=== PATIENT | male | born 1950 | race Caucasian/White ===

== ENCOUNTER 2017-09-28 00:07 | Emergency (ER) | payer MEDICARE, BC ==
--- NOTE | 2017-09-28 00:42 | EDM.PDOC ---
ED HPI GENERAL MEDICAL PROBLEM - General Chief Complaint: Genitourinary Problem Stated Complaint: PAIN LOWER ABDOMEN AREA Time Seen by Provider: 09/28/17 00:30 Source of Information: Reports: Patient History Limitations: Reports: No Limitations - History of Present Illness INITIAL COMMENTS - FREE TEXT/NARRATIVE: This is a 67-year-old male. He had prostate surgery back on the . Apparently last 2 weeks he had a upper respiratory infection was coughing quite a bit. He is noted over the last several days some swelling in his left testicle and marked tenderness and he thinks he might have a hernia. Today he's been running a low-grade fever and chilling but no documented fever. He's had bilateral hernia surgeries in the past with mesh. The left testicle is swollen and very tender he denies any difficulty in urination. Apparently after the prostate surgery had a lot of oozing of bloody urine but that pretty much has eased up. Left Groin Pain Score (Numeric/FACES): 8 - Related Data Allergies Allergy/AdvReac Type Severity Reaction Status Date / Time amoxicillin [Amoxicillin] Allergy Muscle Verified 09/28/17 00:27 Aches Past Medical History HEENT History: Reports: Impaired Vision Cardiovascular History: Reports: Hypertension, Other (See Below) Other Cardiovascular History: partial blockage Respiratory History: Reports: Sleep Apnea Gastrointestinal History: Reports: GERD, Hiatal Hernia - Past Surgical History Male Surgical History: Reports: Prostatectomy Neurological Surgical History: Reports: Lumbar Spine Musculoskeletal Surgical History: Reports: Shoulder Surgery Social & Family History - Family History Cardiac: Reports: Hypertension Neurological: Reports: Other (See Below) Other Neurological Family History: ALS - Tobacco Use Smoking Status *Q: Never Smoker Second Hand Smoke Exposure: No - Caffeine Use Caffeine Use: Reports: None ED ROS GENERAL - Review of Systems Review Of Systems: See Below Constitutional: Reports: Fever, Chills HEENT: Reports: No Symptoms Respiratory: Reports: No Symptoms Cardiovascular: Reports: No Symptoms Endocrine: Reports: No Symptoms GI/Abdominal: Reports: No Symptoms : Reports: Pain, Other (Left testicular enlargement) Musculoskeletal: Reports: No Symptoms Skin: Reports: No Symptoms Neurological: Reports: No Symptoms Psychiatric: Reports: No Symptoms Hematologic/Lymphatic: Reports: No Symptoms Immunologic: Reports: No Symptoms ED EXAM, RENAL/ - Physical Exam Exam: See Below Exam Limited By: No Limitations General Appearance: Alert, WD/WN, No Apparent Distress Eye Exam: Bilateral Eye: Normal Inspection Ears: Normal External Exam Nose: Normal Inspection Throat/Mouth: Normal Inspection, Normal Lips, Normal Voice Head: Normocephalic Neck: Supple Respiratory/Chest: No Respiratory Distress (Male) Exam: Testicular Mass, Testicular Tenderness (L), Other (There is no inguinal hernia noted, the left testicle is about 3 times larger than the right one and very tender on palpation, the testicular cord on the left is also very tender) Back Exam: Full Range of Motion Extremities: Normal Inspection, Normal Range of Motion Neurological: Alert, Oriented Psychiatric: Normal Affect, Normal Mood Skin Exam: Warm, Dry Course - Vital Signs Last Recorded V/S: Last Vital Signs Temp 99.5 F 09/28/17 00:22 Pulse 67 09/28/17 00:22 Resp 18 09/28/17 00:22 BP 143/88 H 09/28/17 00:22 Pulse Ox 96 09/28/17 00:22 - Orders/Labs/Meds Orders: Active Orders 24 hr Category Date Time Status Testicular US [Scrotum and Contents] [US] Stat Exams 09/28/17 00:38 Ordered CBC WITH AUTO DIFF [HEME] Stat Lab 09/28/17 00:39 Ordered COMPREHENSIVE METABOLIC PN,CMP [CHEM] Stat Lab 09/28/17 00:39 Ordered - Re-Assessments/Exams Free Text/Narrative Re-Assessment/Exam: 09/28/17 00:52 I spoke to the patient regarding his lab results and his PSA. I also spoke to Dr. Haider regarding the patient's situation being in [place] last week his elevated PSA and his worsening gross hematuria. Dr. Haider is willing to put him in the hospital for observation and bladder irrigation as needed. The patient understands that his family physician Dr. Cristiana Ulrich needs to make arrangements for him to go to [facility] since the [place] urologist is unable to help him at this time. Departure - Departure Time of Disposition: 00:53 Disposition: Refer to Observation Condition: Fair Clinical Impression: Prostate cancer, Gross hematuria, Anemia due to chronic blood loss - Discharge Information Referrals: Nuno Cortes MD [Primary Care Provider] - Forms: ED Department Discharge Additional Instructions: I spoke to Dr. Haider and he will place the patient in observation for further evaluation and treatment ED Communication - ED Communication Date/Time Date: 09/28/17 Time Called: 00:55 - Discussed Case With (1) Person/s Notified (1): Kisha Haider (He will place the patient in observation) - My Orders Last 24 Hours: My Active Orders 09/28/17 00:38 Testicular US [Scrotum and Contents] [US] Stat 09/28/17 00:39 CBC WITH AUTO DIFF [HEME] Stat COMPREHENSIVE METABOLIC PN,CMP [CHEM] Stat - Assessment/Plan Last 24 Hours: My Active Orders 09/28/17 00:38 Testicular US [Scrotum and Contents] [US] Stat 09/28/17 00:39 CBC WITH AUTO DIFF [HEME] Stat COMPREHENSIVE METABOLIC PN,CMP [CHEM] Stat
--- NOTE | 2017-09-28 02:13 | EDM.PDOC ---
ED HPI GENERAL MEDICAL PROBLEM - General Chief Complaint: Genitourinary Problem Stated Complaint: PAIN LOWER ABDOMEN AREA Time Seen by Provider: 09/28/17 00:30 Source of Information: Reports: Patient, Other (Please note there is going to be to charts because I accidentally somehow signed the first chart so I'm adding more information to this chart but the 2 charts combined should be the total chart.) History Limitations: Reports: No Limitations - History of Present Illness INITIAL COMMENTS - FREE TEXT/NARRATIVE: This is a 67-year-old male. He had prostate surgery back on the . Apparently last 2 weeks he had a upper respiratory infection was coughing quite a bit. He is noted over the last several days some swelling in his left testicle and marked tenderness and he thinks he might have a hernia. Today he's been running a low-grade fever and chilling but no documented fever. He's had bilateral hernia surgeries in the past with mesh. The left testicle is swollen and very tender he denies any difficulty in urination. Apparently after the prostate surgery had a lot of oozing of bloody urine but that pretty much has eased up. Left Groin Pain Score (Numeric/FACES): 8 - Related Data Allergies Allergy/AdvReac Type Severity Reaction Status Date / Time amoxicillin [Amoxicillin] Allergy Muscle Verified 09/28/17 00:27 Aches Home Meds: Home Meds Ciprofloxacin HCl [Cipro] 500 mg PO BID #20 tablet 09/28/17 [Rx] Hydrocodone/Acetaminophen [Hydrocodon-Acetaminophen 5-325] 1 each PO Q6HR PRN # 20 tablet 09/28/17 [Rx] Past Medical History HEENT History: Reports: Impaired Vision Cardiovascular History: Reports: Hypertension, Other (See Below) Other Cardiovascular History: partial blockage Respiratory History: Reports: Sleep Apnea Gastrointestinal History: Reports: GERD, Hiatal Hernia - Past Surgical History Male Surgical History: Reports: Prostatectomy Neurological Surgical History: Reports: Lumbar Spine Musculoskeletal Surgical History: Reports: Shoulder Surgery Social & Family History - Family History Cardiac: Reports: Hypertension Neurological: Reports: Other (See Below) Other Neurological Family History: ALS - Tobacco Use Smoking Status *Q: Never Smoker Second Hand Smoke Exposure: No - Caffeine Use Caffeine Use: Reports: None ED ROS GENERAL - Review of Systems Review Of Systems: See Below Constitutional: Reports: Fever, Chills HEENT: Reports: No Symptoms Respiratory: Reports: No Symptoms Cardiovascular: Reports: No Symptoms Endocrine: Reports: No Symptoms GI/Abdominal: Reports: No Symptoms : Reports: Dysuria, Hematuria, Other (Left testicular swelling and pain) Musculoskeletal: Reports: No Symptoms Skin: Reports: No Symptoms Neurological: Reports: No Symptoms Psychiatric: Reports: No Symptoms Hematologic/Lymphatic: Reports: No Symptoms ED EXAM, RENAL/ - Physical Exam Exam: See Below Exam Limited By: No Limitations General Appearance: Alert, WD/WN, No Apparent Distress Eye Exam: Bilateral Eye: Normal Inspection Ears: Normal External Exam Nose: Normal Inspection Throat/Mouth: Normal Inspection, Normal Lips, Normal Voice, No Airway Compromise Head: Normocephalic Neck: Supple Respiratory/Chest: No Respiratory Distress, Lungs Clear GI/Abdominal: Soft, Non-Tender, Other (There are no inguinal hernias noted) (Male) Exam: Testicular Mass, Testicular Tenderness (L), Other (The left testicle is about 3 times larger than right testicle very tender on palpation and the vascular bundle on the left is also very tender, there is no obvious inguinal hernias either on the left or the right groin area) Back Exam: Normal Inspection, Full Range of Motion Extremities: Normal Inspection, Normal Range of Motion, Non-Tender Neurological: Alert, Oriented Psychiatric: Normal Affect, Normal Mood Skin Exam: Warm, Dry Course - Vital Signs Last Recorded V/S: Last Vital Signs Temp 99.5 F 09/28/17 00:22 Pulse 67 09/28/17 00:22 Resp 18 09/28/17 00:22 BP 143/88 H 09/28/17 00:22 Pulse Ox 96 09/28/17 00:22 - Orders/Labs/Meds Orders: Active Orders 24 hr Category Date Time Status Testicular US [Scrotum and Contents] [US] Stat Exams 09/28/17 00:38 Taken cefTRIAXone [Rocephin] 1 gm Med 09/28/17 02:15 Active Lidocaine 1% [Xylocaine 1%] 2.1 ml IM Q24H Medication Orders Ceftriaxone Sodium 1 gm/ (Lidocaine HCl 2.1 ml) 0 gm IM Q24H IRVIN Last Admin: 09/28/17 02:21 Dose: 2.1 inj Labs: Laboratory Tests 09/28/17 09/28/17 09/28/17 Range/Units 00:40 01:01 01:01 WBC 9.23 H (4.23-9.07) K/mm3 RBC 4.52 L (4.63-6.08) M/mm3 Hgb 13.7 (13.7-17.5) gm/L Hct 40.2 (40.1-51.0) % MCV 88.9 (79.0-92.2) fl MCH 30.3 (25.7-32.2) pg MCHC 34.1 (32.2-35.5) g/dl RDW Std Deviation 41.4 (35.1-43.9) fL Plt Count 168 (163-337) K/mm3 MPV 10.0 (9.4-12.3) fl Neut % (Auto) 75.6 H (34.0-67.9) % Lymph % (Auto) 13.8 L (21.8-53.1) % [place] % (Auto) 9.4 (5.3-12.2) % Eos % (Auto) 0.8 (0.8-7.0) Baso % (Auto) 0.3 (0.1-1.2) % Neut # (Auto) 6.98 H (1.78-5.38) K/mm3 Lymph # (Auto) 1.27 L (1.32-3.57) K/mm3 [place] # (Auto) 0.87 H (0.30-0.82) K/mm3 Eos # (Auto) 0.07 (0.04-0.54) K/mm3 Baso # (Auto) 0.03 (0.01-0.08) K/mm3 Sodium 140 (136-145) mEq/L Potassium 3.8 (3.5-5.1) mEq/L Chloride 106 (98-107) mEq/L Carbon Dioxide 26 (21-32) mEq/L Anion Gap 11.8 (5-15) BUN 18 (7-18) mg/dL Creatinine 1.1 (0.7-1.3) mg/dL Est Cr Clr Drug Dosing 66.95 mL/min Estimated GFR (MDRD) > 60 (>60) mL/min BUN/Creatinine Ratio 16.4 (14-18) Glucose 120 H (80-115) mg/dL Calcium 9.1 (8.5-10.1) mg/dL Total Bilirubin 0.6 (0.2-1.0) mg/dL AST 15 (15-37) U/L ALT 25 (16-63) U/L Alkaline Phosphatase 91 (46-116) U/L Total Protein 6.9 (6.4-8.2) g/dl Albumin 3.4 (3.4-5.0) g/dl Globulin 3.5 gm/dL Albumin/Globulin Ratio 1.0 (1-2) Urine Color Yellow (Yellow) Urine Appearance Cloudy H (Clear) Urine pH 6.0 (5.0-8.0) Ur Specific [place] 1.025 (1.005-1.030) Urine Protein 2+ H (Negative) Urine Glucose (UA) Negative (Negative) Urine Ketones Negative (Negative) Urine Occult Blood 2+ H (Negative) Urine Nitrite Negative (Negative) Urine Bilirubin Negative (Negative) Urine Urobilinogen 0.2 (0.2-1.0) Ur Leukocyte Esterase 2+ H (Negative) Urine RBC 10-20 H (0-5) /hpf Urine WBC >100 H (0-5) /hpf Ur Epithelial Cells Not seen (0-5) /hpf Urine Bacteria Moderate H (FEW) /hpf Urine Mucus Many H (FEW) /hpf Meds: Medications Generic Name Dose Route Start Last Admin Trade Name Kishanq PRN Reason Stop Dose Admin Ceftriaxone Sodium 1 gm/ 0 gm 09/28/17 02:15 09/28/17 02:21 Lidocaine HCl 2.1 ml IM 2.1 inj Q24H IRVIN Administration - Re-Assessments/Exams Free Text/Narrative Re-Assessment/Exam: 09/28/17 02:11 This is a addition to the chart that I signed so there will be 2 charts. I spoke to the patient regarding the ultrasound results and the left hydrocele is complex suggesting some blood. He is to call his urologist on Friday for a follow-up appointment. He is noted to have a urinary tract infection as well and I will give him a shot of Rocephin and started him on some Cipro tomorrow. I spoke to her about icing down the hydrocele also given something for pain. Departure - Departure Time of Disposition: 02:41 Disposition: Home, Self-Care 01 Condition: Good Clinical Impression: Left hydrocele, Left testicular pain, Prostate infection Urinary tract infection Qualifiers: Urinary tract infection type: acute cystitis Hematuria presence: with hematuria Qualified Code(s): N30.01 - Acute cystitis with hematuria - Discharge Information Prescriptions: Hydrocodone/Acetaminophen [Hydrocodon-Acetaminophen 5-325] 1 each PO Q6HR PRN # 20 tablet PRN Reason: Pain Ciprofloxacin HCl [Cipro] 500 mg PO BID #20 tablet Referrals: Nuno Cortes MD [Primary Care Provider] - Forms: ED Department Discharge Additional Instructions: Take the antibiotics faithfully beginning tomorrow evening when you get them, take the medicine as needed for pain, use ice packs to the left testicle on and off to help with the soreness in the pain, on Friday you need to call your urologist and let them know the results of the ultrasound to see if they wanted do anything different or see you sometime next week, return to the ER if needed or he should develop a fever greater than 101.5. - My Orders Last 24 Hours: My Active Orders 09/28/17 00:38 Testicular US [Scrotum and Contents] [US] Stat 09/28/17 02:15 cefTRIAXone [Rocephin] 1 gm Lidocaine 1% [Xylocaine 1%] 2.1 ml IM Q24H - Assessment/Plan Last 24 Hours: My Active Orders 09/28/17 00:38 Testicular US [Scrotum and Contents] [US] Stat 09/28/17 02:15 cefTRIAXone [Rocephin] 1 gm Lidocaine 1% [Xylocaine 1%] 2.1 ml IM Q24H
[2017-09-28] MEDS ORDERED: cefTRIAXone 1 GM, Lidocaine 1% 2.1 ML IM SCH ×2 (02:15)
[2017-09-28] MEDS ORDERED: Acetaminophen/HYDROcodone 325-5 MG Tab PO ONE (03:00)
--- NOTE | 2017-09-29 06:45 | US ---
Testicular ultrasound: Multiple real-time images of the testicles were obtained. Testicles have a homogeneous ultrasound appearance. No intratesticular abnormality is identified. Both arterial and venous blood flow are seen within both testicles. Small bilateral hydroceles are seen slightly complex on the left side. Small epididymal cyst is noted on both sides measuring 8 mm on the left side and 7 mm on the right side. Measurements: Right testicle: 4.0 x 2.2 x 2.6 cm Left testicle: 3.7 x 2.9 x 2.9 cm Impression: 1. Slightly complicated left-sided hydrocele most likely incidental. 2. Other findings felt to be incidental as described above. Diagnostic code #2 I agree with preliminary report issued by [employer] ([employer] preliminary report dictated on 09/28/17, 2:53 AM Central Time)
== END 2017-09-28 03:12 | disposition home or self-care (01) ==
LOC: JD.ED 00:07
DX: N43.3 Hydrocele, unspecified (principal); N41.1 Chronic prostatitis; N30.01 Acute cystitis with hematuria; Z88.1 Allergy status to other antibiotic agents; N50.812 Left testicular pain
CPT/HCPCS: 36415; 76870; 80053; 81001; 85025; 93975; 96372; 99284; A9270; J0696; 99283

== ENCOUNTER 2018-03-12 15:53 | Emergency (ER) | payer MEDICARE, BC ==
[2018-03-12] MEDS ORDERED: Ondansetron 4 MG/2 ML SDV IVPUSH ONE (16:10)
[2018-03-12] MEDS ORDERED: HYDROmorphone 0.5 MG/0.5 ML SYRINGE IVPUSH ONE (16:11)
[2018-03-12] MEDS ORDERED: Sodium Chloride 0.9% 1,000 ML IV SCH (16:15)
--- NOTE | 2018-03-12 16:15 | EDM.PDOC ---
ED HPI GENERAL MEDICAL PROBLEM - General Chief Complaint: Trauma Stated Complaint: KICKED BY A COW ARM/CHEST Time Seen by Provider: 03/12/18 16:10 Source of Information: Reports: Patient, Family () History Limitations: Reports: No Limitations - History of Present Illness INITIAL COMMENTS - FREE TEXT/NARRATIVE: 67-year-old male presents to the ED in a couple limit of his . 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 He states he was bent over feeding a calf when he was suddenly struck left lateral rib cage by mother cow. She essentially lifted him up with her head and through them about 10 feet and then she continued to Mall him across the [place] with her head. She says head was up against the fence and was repetitively struck against fence during this event. He states he had a play for about 2-3 minutes before she walked away. He is complaining of increasing left-sided chest pain the distribution of his ribs particularly 78 and 9. Is able to walk okay. Hurts to deep breathe. Still little nauseated. Did suffer a scratch puncture wound to the right lateral scalp from his eyeglasses which were broken in this event and he has different glasses in place. Mild to moderate headache. Does have some diffuse upper abdominal pain both right upper quadrant and left upper quadrant. Some pain right lower extremity ie. tib-fib and right forearm. Onset: Today Onset Date: 03/12/18 Onset Time: 14:20 Duration: Hour(s): Location: Reports: Head, Chest, Abdomen (Seen 2 hours a proximally after injury) , Upper Extremity, Right, Lower Extremity, Right Quality: Reports: Ache, Other Severity: Moderate (Pleuritic pain to take a deep breath sharp and stabbing left ribs particularly anteriorly laterally along the costal margin.) Improves with: Reports: Rest Worsens with: Reports: Movement (Particularly any movement or deep breathing.) Context: Reports: Trauma (Mauled by a cow. ). Denies: Activity, Exercise, Lifting, Sick Contact Associated Symptoms: Reports: Chest Pain, Nausea/Vomiting (Mild nausea with no vomiting), Shortness of Breath. Denies: Confusion, Cough, cough w sputum, Diaphoresis, Fever/Chills, Headaches, Loss of Appetite, Malaise, Rash, Seizure, Syncope Treatments SOFTWARE TESTER: Reports: Other (see below) (None.) Left Chest Pain Score (Numeric/FACES): 7 Right Upper Arm Pain Score (Numeric/FACES): 7 - Related Data Allergies Allergy/AdvReac Type Severity Reaction Status Date / Time amoxicillin [Amoxicillin] Allergy Muscle Verified 03/12/18 16:01 Aches Home Meds: Home Meds Omeprazole Magnesium [Prilosec] 10 mg PO DAILY 03/12/18 [History] Quinapril HCl 40 mg PO DAILY 03/12/18 [History] amLODIPine Besylate [Amlodipine Besylate] 10 mg PO DAILY 03/12/18 [History] atorvaSTATin [Lipitor] 20 mg PO DAILY 03/12/18 [History] oxyCODONE HCl/Acetaminophen [Percocet 5-325 mg Tablet] 1 - 2 each PO Q4H PRN # 20 tablet 03/12/18 [Rx] Past Medical History HEENT History: Reports: Impaired Vision Cardiovascular History: Reports: Hypertension, Other (See Below) Other Cardiovascular History: partial blockage Respiratory History: Reports: Sleep Apnea Gastrointestinal History: Reports: GERD, Hiatal Hernia - Past Surgical History Male Surgical History: Reports: Prostatectomy Neurological Surgical History: Reports: Lumbar Spine Musculoskeletal Surgical History: Reports: Shoulder Surgery Social & Family History - Family History Cardiac: Reports: Hypertension Neurological: Reports: Other (See Below) Other Neurological Family History: ALS - Tobacco Use Smoking Status *Q: Never Smoker Second Hand Smoke Exposure: No - Caffeine Use Caffeine Use: Reports: None - Recreational Drug Use Recreational Drug Use: No - Living Situation & Occupation Living situation: Reports: Occupation: Employed Review of Systems - Review of Systems 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 Denies: Bleeding, Clots Respiratory: Reports: Shortness of Breath, Pleuritic Chest Pain. Denies: Wheezing, Cough (Left chest wall), Sputum, Hemoptysis Cardiovascular: Reports: No Symptoms GI/Abdominal: Reports: Abdominal Pain Genitourinary: Reports: No Symptoms Musculoskeletal: Reports: Other Skin: Reports: Other (L: Right upper quadrant and left upper quadrant mild. Eczematous dermatitis lower extremities.) Neurological: Reports: Headache. Denies: Confusion, Dizziness, Numbness, Syncope, Tingling, Tremors, Trouble Speaking, Difficulty Walking, Weakness, Change in Speech, Gait Disturbance Psychiatric: Reports: No Symptoms ED EXAM, GENERAL - Physical Exam Exam: See Below General Appearance: Alert, Mild Distress Eye Exam: Bilateral Eye: Normal Inspection Ears: Normal TMs Nose: Normal Inspection Throat/Mouth: Normal Inspection, Normal Lips, Normal Oropharynx, Other Head: Other (Has a scratch and slight hematoma right temporal scalp.). No: Facial Swelling, Facial Tenderness Neck: Normal Inspection, Supple (No injuries to the tongue.), Non-Tender, Full Range of Motion. No: Lymphadenopathy (L), Lymphadenopathy (R) Respiratory/Chest: No Respiratory Distress, Lungs Clear, Normal Breath Sounds, No Accessory Muscle Use, Other (Has a linear scar over his left clavicle where he apparently has plates and screws due to severely comminuted fracture of his left clavicle . No subcutaneous emphysema. Tenderness from ribs 789 and 10.) Cardiovascular: Normal Peripheral Pulses, Regular Rate, Rhythm, No Edema, No Gallop, No Murmur GI/Abdominal: Normal Bowel Sounds, Soft, Guarding, Tender. No: Rigid (Tender along the distribution of the liver and the spleen and left upper quadrant without any definitive masses. There are no true peritoneal signs but mild guarding.), Rebound (Male) Exam: No Hernia Back Exam: Normal Inspection, Full Range of Motion, Other (Previous L-spine surgical scar.). No: Decreased Range of Motion (No abrasions or contusions. Previous L-spine surgical scar appreciated midline lumbar spine) Extremities: Other (Has some contusions and abrasions to his left lower leg but full range of motion with no sign of bony injury. 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 Abrasion appreciated extensor surface mid forearm.) Neurological: Alert, Oriented, CN II-XII Intact, Normal Cognition, Normal Gait Psychiatric: Normal Affect, Normal Mood Skin Exam: Warm, Dry, Intact, Normal Color Course - Vital Signs Last Recorded V/S: Last Vital Signs Temp 36.6 C 03/12/18 18:00 Pulse 85 03/12/18 18:00 Resp 16 03/12/18 18:00 BP 143/83 H 03/12/18 18:00 Pulse Ox 98 03/12/18 18:00 - Orders/Labs/Meds Orders: Active Orders 24 hr Category Date Time Status Chest Abdomen Pelvis w Cont [CT] Stat Exams 03/12/18 16:13 Taken Forearm 2V Rt [CR] Stat Exams 03/12/18 16:28 Taken Head wo Cont [CT] Stat Exams 03/12/18 16:12 Taken PATIENT RETYPE [BBK] Stat Lab 03/12/18 16:10 Results TYPE AND SCREEN [BBK] Stat Lab 03/12/18 16:10 Results URINALYSIS W/MICROSCOPIC [UA W/MICROSCOPIC] [URIN] Stat Lab 03/12/18 16:12 Ordered Labs: Laboratory Tests 03/12/18 03/12/18 03/12/18 Range/Units 16:10 16:10 16:10 WBC 6.56 (4.23-9.07) K/mm3 RBC 5.04 (4.63-6.08) M/mm3 Hgb 15.8 (13.7-17.5) gm/L Hct 44.5 (40.1-51.0) % MCV 88.3 (79.0-92.2) fl MCH 31.3 (25.7-32.2) pg MCHC 35.5 (32.2-35.5) g/dl RDW Std Deviation 41.5 (35.1-43.9) fL Plt Count 191 (163-337) K/mm3 MPV 10.3 (9.4-12.3) fl Neutrophils % (Manual) 81 H (40-60) % Band Neutrophils % 0 (0-10) % Lymphocytes % (Manual) 17 L (20-40) % Atypical Lymphs % 0 % Monocytes % (Manual) 0 L (2-10) % Eosinophils % (Manual) 1 (0.8-7.0) % Basophils % (Manual) 1 (0.2-1.2) Platelet Estimate Adequate RBC Morph Comment Normal Sodium 137 (136-145) mEq/L Potassium 3.6 (3.5-5.1) mEq/L Chloride 102 (98-107) mEq/L Carbon Dioxide 27 (21-32) mEq/L Anion Gap 11.6 (5-15) BUN 16 (7-18) mg/dL Creatinine 1.0 (0.7-1.3) mg/dL Est Cr Clr Drug Dosing 78.44 mL/min Estimated GFR (MDRD) > 60 (>60) mL/min BUN/Creatinine Ratio 16.0 (14-18) Glucose 135 H (80-115) mg/dL Calcium 9.6 (8.5-10.1) mg/dL Total Bilirubin 1.4 H (0.2-1.0) mg/dL AST 26 (15-37) U/L ALT 33 (16-63) U/L Alkaline Phosphatase 97 (46-116) U/L Total Protein 8.0 (6.4-8.2) g/dl Albumin 4.5 (3.4-5.0) g/dl Globulin 3.5 gm/dL Albumin/Globulin Ratio 1.3 (1-2) Amylase 46 (25-115) U/L Blood Type A POSITIVE Gel Antibody Screen Negative Meds: Medications Discontinued Medications Generic Name Dose Route Start Last Admin Trade Name Freq PRN Reason Stop Dose Admin Hydromorphone HCl 0.5 mg 03/12/18 16:11 03/12/18 16:19 Dilaudid IVPUSH 03/12/18 16:12 0.5 mg ONETIME ONE Administration Sodium Chloride 1,000 mls @ 250 mls/hr 03/12/18 16:15 03/12/18 16:20 Normal Saline IV 250 mls/hr ASDIRECTED IRVIN Administration Ibuprofen 600 mg 03/12/18 17:33 03/12/18 17:40 Motrin PO 03/12/18 17:34 600 mg ONETIME ONE Administration Iopamidol 125 ml 03/12/18 16:21 03/12/18 16:35 Isovue-300 (61%) IVPUSH 03/12/18 16:22 125 ml ONETIME ONE Administration Ondansetron HCl 4 mg 03/12/18 16:10 03/12/18 16:20 Zofran IVPUSH 03/12/18 16:11 4 mg ONETIME ONE Administration Sodium Chloride 10 ml 03/12/18 16:21 03/12/18 16:35 Saline Flush FLUSH 03/12/18 16:22 10 ml ONETIME ONE Administration - Radiology Interpretation Free Text/Narrative:: 67-year-old male presents to the ED after being [place]. He was initially struck in the left lateral chest wall and throat about 10 feet landing hard on the ground. States this knocked the wind out of him. He was then mauled repeatedly by the cow rolling across the [place] into the fence. States his head hit repetitively against the fence but no loss of consciousness occurred. He states it appeared that for 2-3 minutes, finally walked away. He has pain now throughout his left anterior lateral chest wall with painful deep inspiration. Some pain both right upper quadrant and left upper quadrant of the abdomen. Obvious contusion and superficial abrasion to his right temporal scalp. Full range of motion of his cervical spine. No injuries to his thoracic or lumbar spine identified he can walk okay. He does have some soft tissue injuries to his right mid forearm and right tib-fib. Is a chronic eczematous dermatitis on his lower extremities which is slightly weeping at this time. Son of bony injuries in his lower extremity. He will have x-rays of his right forearm. CT head. He will have CT chest abdomen pelvis with IV contrast to rule out splenic hepatic or renal injuries. Suspect he fractured a rib or two.. - Re-Assessments/Exams Free Text/Narrative Re-Assessment/Exam: 03/12/18 17:19 x-rays of the right forearm reveal no bony injuries. CT head reveals no intracranial bleeding or skull fracture. CT chest abdomen pelvis were completed. I believe there are fractures of the left 9th , 10th and 11th ribs padma laterally. No subcutaneous emphysema no pneumothorax great vessels are normal. Fair amount of fat around the heart. The other shows spleen and kidneys pancreas and liver to be intact. No intraperitoneal bleeding noted. Bowel appears to be normal glasses normal bladder fills normally. Visualized portions of the thoracic and lumbar spine do not reveal any bony fractures. Similarly pelvis is intact without any fractures. 03/12/18 17:28 Labs reveal a normal white count at 6.56. Differential is 81% neutrophils no bands. Hemoglobin is 15.8 with hematocrit of 44.5. White count is normal 191,000. Chemistry is completely normal. Glucose 135. Calcium 9.6. Total bilirubin mildly elevated at 1.4. 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 AST is 33. Alk phosphatase is 97. Amylase is normal at 46. 03/12/18 18:18 initially patient didn't think he needed anything stronger than Motrin for pain relief. His son persuaded him to take a prescription that I had offered for analgesia as he is likely to become much more stiff and sore over the next 2-3 days. I therefore did write a prescription for Percocet 5/25 milligrams tabs one or 2 every 4-6 hours needed for pain relief in addition to Motrin for pain. 20 tablets provided Departure - Departure Time of Disposition: 17:54 Disposition: Home, Self-Care 01 Condition: Fair Clinical Impression: Contusion of right forearm, initial encounter Contusion, chest wall Qualifiers: Encounter type: initial encounter Laterality: left Qualified Code(s): S20.212A - Contusion of left front wall of thorax, initial encounter Closed head injury Qualifiers: Encounter type: initial encounter Qualified Code(s): S09.90XA - Unspecified injury of head, initial encounter Contusion of right lower leg Qualifiers: Encounter type: initial encounter Qualified Code(s): S80.11XA - Contusion of right lower leg, initial encounter Fracture of rib of left side Qualifiers: Encounter type: initial encounter Rib fracture type: multiple ribs Fracture type: closed Qualified Code(s): S22.42XA - Multiple fractures of ribs, left side , initial encounter for closed fracture - Discharge Information Prescriptions: oxyCODONE HCl/Acetaminophen [Percocet 5-325 mg Tablet] 1 - 2 each PO Q4H PRN # 20 tablet PRN Reason: pain relief. Instructions: Head Injury, Adult, Chest Contusion, Adult, [id number] Referrals: Lora Mckeon PA [Primary Care Provider] - Forms: ED Department Discharge Additional Instructions: ED HPI GENERAL MEDICAL PROBLEM - General Chief Complaint: Trauma Stated Complaint: KICKED BY A COW ARM/CHEST Time Seen by Provider: 03/12/18 16:10 Source of Information: Reports: Patient, Family () History Limitations: Reports: No Limitations - History of Present Illness INITIAL COMMENTS - FREE TEXT/NARRATIVE: 67-year-old male presents to the ED in the accompaniement of his . 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 He states he was bent over feeding a calf when he was suddenly struck in the left lateral rib cage by a mother cow. She essentially lifted him up with her head and threw him about 10 feet and then she continued to maul him across the [place] with her head. He said his head was up against the fence and was repetitively struck against fence during this event. He states he had to play for about 2-3 minutes before she walked away. He is complaining of increasing left-sided chest pain in the distribution of his ribs particularly 8 , 9 and 10 . he is able to walk okay. Hurts to deep breathe. Is a little nauseated. Did suffer a scratch /puncture wound to the right lateral scalp from his eyeglasses which were broken in this event and he has different glasses in place. Mild to moderate headache. Does have some diffuse upper abdominal pain both right upper quadrant and left upper quadrant. Some pain right lower extremity ie. tib-fib and right forearm. Onset: Today Onset Date: 03/12/18 Onset Time: 14:20 Duration: Hour(s): Location: Reports: Head, Chest, Abdomen (Seen 2 hours a proximally after injury) , Upper Extremity, Right, Lower Extremity, Right Quality: Reports: Ache, Other Severity: Moderate (Pleuritic pain to take a deep breath sharp and stabbing left ribs particularly anteriorly laterally along the costal margin.) Improves with: Reports: Rest Worsens with: Reports: Movement (Particularly any movement or deep breathing.) Context: Reports: Trauma (Mauled by a cow. ). Denies: Activity, Exercise, Lifting, Sick Contact Associated Symptoms: Reports: Chest Pain, Nausea/Vomiting (Mild nausea with no vomiting), Shortness of Breath. Denies: Confusion, Cough, cough w sputum, Diaphoresis, Fever/Chills, Headaches, Loss of Appetite, Malaise, Rash, Seizure, Syncope Treatments SOFTWARE TESTER: Reports: Other (see below) (None.) Left Chest Pain Score (Numeric/FACES): 7 Right Upper Arm Pain Score (Numeric/FACES): 7 - Related Data Allergies Allergy/AdvReac Type Severity Reaction Status Date / Time amoxicillin [Amoxicillin] Allergy Muscle Verified 03/12/18 16:01 Aches Home Meds: Home Meds Omeprazole Magnesium [Prilosec] 10 mg PO DAILY 03/12/18 [History] Quinapril HCl 40 mg PO DAILY 03/12/18 [History] amLODIPine Besylate [Amlodipine Besylate] 10 mg PO DAILY 03/12/18 [History] atorvaSTATin [Lipitor] 20 mg PO DAILY 03/12/18 [History] Past Medical History HEENT History: Reports: Impaired Vision Cardiovascular History: Reports: Hypertension, Other (See Below) Other Cardiovascular History: partial blockage Respiratory History: Reports: Sleep Apnea Gastrointestinal History: Reports: GERD, Hiatal Hernia - Past Surgical History Male Surgical History: Reports: Prostatectomy Neurological Surgical History: Reports: Lumbar Spine Musculoskeletal Surgical History: Reports: Shoulder Surgery Social & Family History - Family History Cardiac: Reports: Hypertension Neurological: Reports: Other (See Below) Other Neurological Family History: ALS - Tobacco Use Smoking Status *Q: Never Smoker Second Hand Smoke Exposure: No - Caffeine Use Caffeine Use: Reports: None - Recreational Drug Use Recreational Drug Use: No - Living Situation & Occupation Living situation: Reports: Occupation: Employed Review of Systems - Review of Systems 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 Denies: Bleeding, Clots Respiratory: Reports: Shortness of Breath, Pleuritic Chest Pain. Denies: Wheezing, Cough (Left chest wall), Sputum, Hemoptysis Cardiovascular: Reports: No Symptoms GI/Abdominal: Reports: Abdominal Pain Genitourinary: Reports: No Symptoms Musculoskeletal: Reports: Other Skin: Reports: Other (L: Right upper quadrant and left upper quadrant mild. Eczematous dermatitis lower extremities.) Neurological: Reports: Headache. Denies: Confusion, Dizziness, Numbness, Syncope, Tingling, Tremors, Trouble Speaking, Difficulty Walking, Weakness, Change in Speech, Gait Disturbance Psychiatric: Reports: No Symptoms ED EXAM, GENERAL - Physical Exam Exam: See Below General Appearance: Alert, Mild Distress Eye Exam: Bilateral Eye: Normal Inspection Ears: Normal TMs Nose: Normal Inspection Throat/Mouth: Normal Inspection, Normal Lips, Normal Oropharynx, Other Head: Other (Has a scratch and slight hematoma right temporal scalp.). No: Facial Swelling, Facial Tenderness Neck: Normal Inspection, Supple (No injuries to the tongue.), Non-Tender, Full Range of Motion. No: Lymphadenopathy (L), Lymphadenopathy (R) Respiratory/Chest: No Respiratory Distress, Lungs Clear, Normal Breath Sounds, No Accessory Muscle Use, Other (Has a linear scar over his left clavicle where he apparently has plates and screws due to severely comminuted fracture of his left clavicle . No subcutaneous emphysema. Tenderness from ribs 789 and 10.) Cardiovascular: Normal Peripheral Pulses, Regular Rate, Rhythm, No Edema, No Gallop, No Murmur GI/Abdominal: Normal Bowel Sounds, Soft, Guarding, Tender. No: Rigid (Tender along the distribution of the liver and the spleen and left upper quadrant without any definitive masses. There are no true peritoneal signs but mild guarding.), Rebound (Male) Exam: No Hernia Back Exam: Normal Inspection, Full Range of Motion, Other (Previous L-spine surgical scar.). No: Decreased Range of Motion (No abrasions or contusions. Previous L-spine surgical scar appreciated midline lumbar spine) Extremities: Other (Has some contusions and abrasions to his left lower leg but full range of motion with no sign of bony injury. 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 Abrasion appreciated extensor surface mid forearm.) Neurological: Alert, Oriented, CN II-XII Intact, Normal Cognition, Normal Gait Psychiatric: Normal Affect, Normal Mood Skin Exam: Warm, Dry, Intact, Normal Color Course - Vital Signs Last Recorded V/S: Last Vital Signs Temp 36.9 C 03/12/18 15:58 Pulse Resp 17 03/12/18 15:58 BP Pulse Ox - Orders/Labs/Meds Orders: Active Orders 24 hr Category Date Time Status Chest Abdomen Pelvis w Cont [CT] Stat Exams 03/12/18 16:13 Taken Forearm 2V Rt [CR] Stat Exams 03/12/18 16:28 Taken Head wo Cont [CT] Stat Exams 03/12/18 16:12 Taken TYPE AND SCREEN [BBK] Stat Lab 03/12/18 16:10 Received URINALYSIS W/MICROSCOPIC [UA W/MICROSCOPIC] [URIN] Stat Lab 03/12/18 16:12 Ordered Sodium Chloride 0.9% [Normal Saline] 1,000 ml Med 03/12/18 16:15 Active IV ASDIRECTED Medication Orders Sodium Chloride (Normal Saline) 1,000 mls @ 250 mls/hr IV ASDIRECTED IRVIN Last Admin: 03/12/18 16:20 Dose: 250 mls/hr Labs: Laboratory Tests 04/26/18 04/26/18 Range/Units 16:10 16:10 WBC 6.56 (4.23-9.07) K/mm3 RBC 5.04 (4.63-6.08) M/mm3 Hgb 15.8 (13.7-17.5) gm/L Hct 44.5 (40.1-51.0) % MCV 88.3 (79.0-92.2) fl MCH 31.3 (25.7-32.2) pg MCHC 35.5 (32.2-35.5) g/dl RDW Std Deviation 41.5 (35.1-43.9) fL Plt Count 191 (163-337) K/mm3 MPV 10.3 (9.4-12.3) fl Neutrophils % (Manual) 81 H (40-60) % Band Neutrophils % 0 (0-10) % Lymphocytes % (Manual) 17 L (20-40) % Atypical Lymphs % 0 % Monocytes % (Manual) 0 L (2-10) % Eosinophils % (Manual) 1 (0.8-7.0) % Basophils % (Manual) 1 (0.2-1.2) Platelet Estimate Adequate RBC Morph Comment Normal Sodium 137 (136-145) mEq/L Potassium 3.6 (3.5-5.1) mEq/L Chloride 102 (98-107) mEq/L Carbon Dioxide 27 (21-32) mEq/L Anion Gap 11.6 (5-15) BUN 16 (7-18) mg/dL Creatinine 1.0 (0.7-1.3) mg/dL Est Cr Clr Drug Dosing 78.44 mL/min Estimated GFR (MDRD) > 60 (>60) mL/min BUN/Creatinine Ratio 16.0 (14-18) Glucose 135 H (80-115) mg/dL Calcium 9.6 (8.5-10.1) mg/dL Total Bilirubin 1.4 H (0.2-1.0) mg/dL AST 26 (15-37) U/L ALT 33 (16-63) U/L Alkaline Phosphatase 97 (46-116) U/L Total Protein 8.0 (6.4-8.2) g/dl Albumin 4.5 (3.4-5.0) g/dl Globulin 3.5 gm/dL Albumin/Globulin Ratio 1.3 (1-2) Amylase 46 (25-115) U/L Meds: Medications Generic Name Dose Route Start Last Admin Trade Name Shahid PRN Reason Stop Dose Admin Sodium Chloride 1,000 mls @ 250 mls/hr 03/12/18 16:15 03/12/18 16:20 Normal Saline IV 250 mls/hr ASDIRECTED IRVIN Administration Discontinued Medications Generic Name Dose Route Start Last Admin Trade Name Shahid PRN Reason Stop Dose Admin Hydromorphone HCl 0.5 mg 03/12/18 16:11 03/12/18 16:19 Dilaudid IVPUSH 03/12/18 16:12 0.5 mg ONETIME ONE Administration Ibuprofen 600 mg 03/12/18 17:33 Motrin PO 03/12/18 17:34 ONETIME ONE Iopamidol 125 ml 03/12/18 16:21 03/12/18 16:35 Isovue-300 (61%) IVPUSH 03/12/18 16:22 125 ml ONETIME ONE Administration Ondansetron HCl 4 mg 03/12/18 16:10 03/12/18 16:20 Zofran IVPUSH 03/12/18 16:11 4 mg ONETIME ONE Administration Sodium Chloride 10 ml 03/12/18 16:21 03/12/18 16:35 Saline Flush FLUSH 03/12/18 16:22 10 ml ONETIME ONE Administration - Radiology Interpretation Free Text/Narrative:: 67-year-old male presents to the ED after [place]. He was initially struck in the left lateral chest wall and throat about 10 feet landing hard on the ground. States this knocked the wind out of him. He was then mauled repeatedly by the cow rolling across the [place] into the fence. States his head hit repetitively against the fence but no loss of consciousness occurred. He states it appeared that for 2-3 minutes, finally walked away. He has pain now throughout his left anterior lateral chest wall with painful deep inspiration. Some pain both right upper quadrant and left upper quadrant of the abdomen. Obvious contusion and superficial abrasion to his right temporal scalp. Full range of motion of his cervical spine. No injuries to his thoracic or lumbar spine identified he can walk okay. He does have some soft tissue injuries to his right mid forearm and right tib-fib. Is a chronic eczematous dermatitis on his lower extremities which is slightly weeping at this time. Son of bony injuries in his lower extremity. He will have x-rays of his right forearm. CT head. He will have CT chest abdomen pelvis with IV contrast to rule out splenic hepatic or renal injuries. Suspect he fractured a rib or two.. - Re-Assessments/Exams Free Text/Narrative Re-Assessment/Exam: 03/12/18 17:19 x-rays of the right forearm reveal no bony injuries. CT head reveals no intracranial bleeding or skull fracture. CT chest abdomen pelvis were completed. I believe there are fractures of the left ninth 10th and 11th ribs anteriorly laterally. No subcutaneous emphysema no pneumothorax great vessels are normal. Fair amount of fat around the heart. The other shows spleen and kidneys pancreas and liver to be intact. No intraperitoneal bleeding noted. Bowel appears to be normal glasses normal bladder fills normally. Visualized portions of the thoracic and lumbar spine do not reveal any bony fractures. Similarly pelvis is intact without any fractures. 03/12/18 17:28 Labs reveal a normal white count at 6.56. Differential is 81% neutrophils no bands. Hemoglobin is 15.8 with hematocrit of 44.5. White count is normal 191,000. Chemistry is completely normal. Glucose 135. Calcium 9.6. Total bilirubin mildly elevated at 1.4. 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 AST is 33. Alk phosphatase is 97. Amylase is normal at 46. Departure - Departure Disposition: Home, Self-Care 01 Condition: Fair Clinical Impression: Contusion of right forearm, initial encounter Contusion, chest wall Qualifiers: Encounter type: initial encounter Laterality: left Qualified Code(s): S20.212A - Contusion of left front wall of thorax, initial encounter Closed head injury Qualifiers: Encounter type: initial encounter Qualified Code(s): S09.90XA - Unspecified injury of head, initial encounter Contusion of right lower leg Qualifiers: Encounter type: initial encounter Qualified Code(s): S80.11XA - Contusion of right lower leg, initial encounter - Discharge Information Referrals: Lora Mckeon PA [Primary Care Provider] - Forms: ED Department Discharge - My Orders Last 24 Hours: My Active Orders 03/12/18 16:10 TYPE AND SCREEN [BBK] Stat 03/12/18 16:12 Head wo Cont [CT] Stat URINALYSIS W/MICROSCOPIC [UA W/MICROSCOPIC] [URIN] Stat 03/12/18 16:13 Chest Abdomen Pelvis w Cont [CT] Stat 03/12/18 16:15 Sodium Chloride 0.9% [Normal Saline] 1,000 ml IV ASDIRECTED 03/12/18 16:28 Forearm 2V Rt [CR] Stat - Assessment/Plan Last 24 Hours: My Active Orders 03/12/18 16:10 TYPE AND SCREEN [BBK] Stat 03/12/18 16:12 Head wo Cont [CT] Stat URINALYSIS W/MICROSCOPIC [UA W/MICROSCOPIC] [URIN] Stat 03/12/18 16:13 Chest Abdomen Pelvis w Cont [CT] Stat 03/12/18 16:15 Sodium Chloride 0.9% [Normal Saline] 1,000 ml IV ASDIRECTED 03/12/18 16:28 Forearm 2V Rt [CR] Stat Evaluation in the emergency room today after being mauled by a cow at home. Suffered blunt trauma to the left chest wall with no apparent injuries to the underlying lungs or heart. Multiple contusions to the head as you were angled up against the fence on multiple occasions by the cow. Abrasion and hematoma to right temporal scalp. CT head reveals no intracranial bleeding or skull fractures. Similarly CT chest abdomen and pelvis reveals no injuries to the liver or spleen or kidneys. 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 vertebra #910 and 11 have almost completely fused together on their own. This represents advanced degenerative arthritic changes. Levator there are fairly advanced degenerative changes without your lower back or lumbar spine without any fractures. Os is intact normal. The right forearm also proved to be negative for any bony injuries. Contusion to the muscles. Expect to be much more stiff and sore over the next 24-48 hours. Ice pack to sore areas for one half hour out of every 4 hours if able. Just Motrin 600 mg every 6 hours needed for relief of pain. Care Plan Goals: Evaluation the emergency room today after being mauled by a cow. He suffered a closed head injury with face small puncture wound and hematoma to the right temporal scalp. CT of the brain and head reveals no fractures and no intracranial bleeding or mass effect. He suffered blunt trauma to your left chest wall with fractures near the breast bone of ribs 910 and 11. No injury to the underlying lung occurred. CT of the abdomen and pelvis was also carried out to make sure that there was no injuries to the kidneys or spleen found to be normal. Liver normal pancreas normal gallbladder normal without any stones. The bowel appears to be normal and urinary bladder is also normal. X-rays of the right forearm were carried out due to pain up near the elbow. The proved to be normal to terminal broke broken bones. You have suffered soft tissue contusions to the muscles. Expect to be much worse over the next 24-48 hours as soft tissue swelling goes on for 2 days after injury. Try and wrist is much as you can. Ice pack to sore areas for one half hour out of every 4 hours. Motrin 600 mg every 6 hours needed for pain relief. May use Percocet 5/3/25 milligram tablets one or 2 every 4-6 hours in addition to Motrin if needed for pain relief for the next 3 or 4 days. Expect gradual improvement over the next 10-14 days. Return to the ED or follow-up with personal care physician if any further problems occur. - My Orders Last 24 Hours: My Active Orders 03/12/18 16:10 PATIENT RETYPE [BBK] Stat TYPE AND SCREEN [BBK] Stat 03/12/18 16:12 Head wo Cont [CT] Stat URINALYSIS W/MICROSCOPIC [UA W/MICROSCOPIC] [URIN] Stat 03/12/18 16:13 Chest Abdomen Pelvis w Cont [CT] Stat 03/12/18 16:28 Forearm 2V Rt [CR] Stat - Assessment/Plan Last 24 Hours: My Active Orders 03/12/18 16:10 PATIENT RETYPE [BBK] Stat TYPE AND SCREEN [BBK] Stat 03/12/18 16:12 Head wo Cont [CT] Stat URINALYSIS W/MICROSCOPIC [UA W/MICROSCOPIC] [URIN] Stat 03/12/18 16:13 Chest Abdomen Pelvis w Cont [CT] Stat 03/12/18 16:28 Forearm 2V Rt [CR] Stat
[2018-03-12] MEDS ORDERED: Sodium Chloride 0.9% 10 ML Syringe FLUSH ONE (16:21)
[2018-03-12] MEDS ORDERED: Iopamidol 612 MG/ML 150 ML Bottle IVPUSH ONE (16:21)
[2018-03-12] MEDS ORDERED: Ibuprofen 600 MG Tab PO ONE (17:33)
--- NOTE | 2018-03-13 07:02 | CT ---
Head CT Technique: Triple axial sections through the brain were obtained. Intravenous contrast was not utilized. Comparison: No previous intracranial imaging. Findings: Ventricles along with basal cisterns and sulci over the convexities are within normal limits for the patient's age. No abnormal parenchymal densities are seen. No evidence of intracranial hemorrhage. No midline shift or mass effect is seen. Bone window settings were reviewed which show no acute calvarial abnormality. Visualized sinuses are clear. Impression: 1. Nothing acute is identified on noncontrast head CT study. Diagnostic code #1 I agree with preliminary report from [facility], finalized at 03/12/18, 5:56 PM Central Time
--- NOTE | 2018-03-13 07:02 | CT ---
CT chest Technique: Multiple axial sections through the chest were obtained. Intravenous contrast was utilized. Comparison: Prior chest CT exam of 09/08/15. Findings: Small nodule is noted within the isthmus of thyroid gland measuring 6 mm which is likely incidental. Mediastinum and hilar regions appear without adenopathy or mass. Coronary artery calcification is seen. No pericardial thickening is seen. Small and stable nodules are seen within the chest from prior exam which likely relate to noncalcified granulomas. Minimal areas of mild pleural calcification are seen. Nothing acute is identified within either lung. Bone window settings were reviewed which show previous plate and screws within the left clavicle. No acute osseous abnormality is seen. Impression: 1. Incidental findings as noted above. Nothing acute is identified on CT study of the chest. Diagnostic code #2 Agree with preliminary report issued by [facility] ([facility] preliminary report dictated on 03/12/18, 6:00 PM) CT abdomen and pelvis Technique: Multiple axial sections were obtained from above the dome of the diaphragm inferiorly through the pubic symphysis. Intravenous contrast was utilized. No oral contrast has been given. Delayed images were obtained through the bladder. Comparison: No previous study. Liver shows no focal parenchymal abnormality. Gallbladder contains no calcified gallstones. Spleen appears within normal limits. Adrenal glands show no nodule. Kidneys show symmetric contrast enhancement. Minimal cyst is identified within the mid right kidney measuring approximately 7 mm. Kidneys otherwise appear unremarkable. Pancreas is normal. Aorta shows atherosclerotic change without aneurysmal dilatation. No retroperitoneal adenopathy or mesenteric abnormalities are seen. No pelvic mass or adenopathy is seen. Diverticuli are seen within the sigmoid colon without evidence of diverticulitis. Appendix is seen which is normal. Both ureters are opacified showing no dilatation. Contrast is noted within the bladder. Bone window settings were reviewed which show no acute osseous abnormality. Impression: 1. Incidental sigmoid diverticulosis. 2. Nothing acute is identified on CT study of the abdomen and pelvis Diagnostic code #2 Agree with preliminary report issued by [facility] ([facility] preliminary report dictated on 03/12/18, 5:59 PM Central Time)
--- NOTE | 2018-03-13 07:02 | CR ---
Right forearm: Two views of the right forearm were obtained. Comparison: No previous study. No fracture or other abnormality is seen. Impression: 1. No abnormality is identified on two-view right forearm study. Diagnostic code #1
== END 2018-03-12 18:00 | disposition home or self-care (01) ==
LOC: JD.ED 15:53
DX: S22.42XA Multiple fractures of ribs, left side, initial encounter for closed fracture (principal); S50.11XA Contusion of right forearm, initial encounter; S80.11XA Contusion of right lower leg, initial encounter; Z88.1 Allergy status to other antibiotic agents; Z79.899 Other long term (current) drug therapy; I10 Essential (primary) hypertension; W55.22XA Struck by cow, initial encounter; Y93.89 Activity, other specified
CPT/HCPCS: 36415; 70450; 71260; 73090; 74177; 80053; 82150; 85025; 86850; 86900; 86901; 96361; 96374; 96375; 99285; A9270; J1170; J2405; J7040; J7050; Q9967; 99284

== ENCOUNTER → 2020-10-18 | Day surgery (SDC) | payer MEDICARE, BC ==
[~2020-10-18] MED LIST: Bupivacaine 0.5% 30 ML SDV ONE; Clindamycin Phosphate in D5W 900 MG in Premix Bag 1 BAG IV SCH; HYDROmorphone 0.5 MG/0.5 ML Syringe IVPUSH PRN; Ketorolac 30 MG/ML SDV IVPUSH ONE; Lactated Ringers 1,000 ML IV SCH; Lactated Ringers 1,000 ML ONE; Lidocaine 1%/Sod Bicarbonate in NS 8.4% 1 ML Syringe IDERM PRN; Lidocaine 2% with EPINEPHrine 1:200,000 20 ML SDV ONE; Midazolam 1 MG/ML 2 ML SDV ONE; Ondansetron 4 MG/2 ML SDV ONE; Propofol 200 MG/20 ML SDV ONE; Rocuronium 50 MG/5 ML Vial ONE; Sodium Chloride 0.9% 10 ML Syringe FLUSH PRN; Succinylcholine/Sod PF 100 MG/5 ML SYRINGE IV ONE; ePHEDrine 50 MG/ML SDV ONE; fentaNYL 100 MCG/2 ML SDV IVPUSH PRN; fentaNYL 100 MCG/2 ML SDV ONE; fentaNYL 250 MCG/5 ML SDV ONE; oxyCODONE 5 MG Tab PO PRN
--- NOTE | 2020-10-18 11:47 | PCM.PREANE ---
Preanesthetic Assessment - Anesthesia/Transfusion/Family Hx Anesthesia History: Prior Anesthesia Without Reaction - Review of Systems General: No Symptoms Pulmonary: No Symptoms Cardiovascular: No Symptoms Gastrointestinal: No Symptoms Neurological: No Symptoms Other: Reports: None - Physical Assessment NPO Status Date: 10/17/20 NPO Status Time: 08:00 Vital Signs: Last Vital Signs Temp 98.6 F 10/18/20 11:10 Pulse 74 10/18/20 11:10 Resp 16 10/18/20 11:10 BP 169/83 H 10/18/20 11:10 Pulse Ox 98 10/18/20 11:10 Height: 1.75 m Weight: 84.368 kg ASA Class: 2E Mental Status: Alert & Oriented x3 Airway Class: Mallampati = 2 Dentition: Reports: Normal Dentition, Zelienople(s), Bridge Thyro-Mental Finger Breadths: 3 Mouth Opening Finger Breadths: 3 ROM/Head Extension: Full Lungs: Clear to Auscultation, Normal Respiratory Effort Cardiovascular: Regular Rate, Regular Rhythm - Allergies Allergies/Adverse Reactions: Allergies Allergy/AdvReac Type Severity Reaction Status Date / Time amoxicillin [Amoxicillin] Allergy Rash Verified 10/18/20 11:27 - Acknowledgements Anesthesia Type Planned: General Anesthesia, Epidural Pt an Appropriate Candidate for the Planned Anesthesia: Yes Alternatives and Risks of Anesthesia Discussed w Pt/Guardian: Yes Pt/Guardian Understands and Agrees with Anesthesia Plan: Yes PreAnesthesia Questionnaire HEENT History: Reports: Impaired Vision Cardiovascular History: Reports: Hypertension, Other (See Below) Other Cardiovascular History: partial blockage Respiratory History: Reports: Sleep Apnea Gastrointestinal History: Reports: GERD, Hiatal Hernia - Past Surgical History Male Surgical History: Reports: Prostatectomy Neurological Surgical History: Reports: Lumbar Spine Musculoskeletal Surgical History: Reports: Shoulder Surgery - SUBSTANCE USE Tobacco Use Status *Q: Never Tobacco User Recreational Drug Use History: No - HOME MEDS Home Medications: Home Meds Quinapril HCl 40 mg PO DAILY 03/12/18 [History] amLODIPine Besylate [Amlodipine Besylate] 10 mg PO DAILY 03/12/18 [History] atorvaSTATin [Lipitor] 20 mg PO DAILY 03/12/18 [History] Aspirin [Adult Low Dose Aspirin EC] 81 mg PO DAILY 10/18/20 [History] Cholecalciferol (Vitamin D3) [Vitamin D3] 1,000 unit PO DAILY 10/18/20 [History] Omeprazole 20 mg PO DAILY 10/18/20 [History] oxyCODONE 5 mg PO Q4H PRN #20 tab 10/18/20 [Rx] - CURRENT (IN HOUSE) MEDS Current Meds: Current Medications Lactated Ringer's (Ringers, Lactated) 1,000 mls @ 125 mls/hr IV ASDIRECTED IRVIN Stop: 10/18/20 23:00 Clindamycin Phosphate 900 mg/ (Premix) 50 mls @ 100 mls/hr IV ONETIME IRVIN Stop: 10/18/20 12:00 Lidocaine/Sodium Bicarbonate (Buffered Lidocaine 1% In Ns 8.4%) 0.25 ml IDERM ONETIME PRN PRN Reason: Prior to IV Start Stop: 10/18/20 18:00 Sodium Chloride (Saline Flush) 10 ml FLUSH ASDIRECTED PRN PRN Reason: Keep Vein Open Stop: 10/18/20 18:00 Discontinued Medications Fentanyl (Sublimaze) Confirm Administered Dose 200 mcg .ROUTE .STK-MED ONE Stop: 10/18/20 10:53 Lidocaine/Epinephrine (Xylocaine-Mpf 2%-Epi 1:200,000) Confirm Administered Dose 20 ml .ROUTE .STK-MED ONE Stop: 10/18/20 10:54 Midazolam HCl (Versed 1 Mg/Ml) Confirm Administered Dose 4 mg .ROUTE .STK-MED ONE Stop: 10/18/20 10:53
--- NOTE | 2020-10-18 14:10 | PCM.POSTAN ---
POST ANESTHESIA ASSESSMENT - MENTAL STATUS Mental Status: Somnolent - VITAL SIGNS Vital Signs: Last Vital Signs Temp 97.0 F 10/18/20 13:57 Pulse 74 10/18/20 11:10 Resp 17 10/18/20 14:00 BP 117/77 10/18/20 14:00 Pulse Ox 99 10/18/20 14:05 - RESPIRATORY Respiratory Status: Respiratory Rate WNL, Airway Patent, O2 Saturation Stable, Supplemental Oxygen - CARDIOVASCULAR CV Status: Pulse Rate WNL, Blood Pressure Stable - GASTROINTESTINAL GI Status: No Symptoms - PAIN Pain Score: 0 - POST OP HYDRATION Hydration Status: Adequate & Stable
--- NOTE | 2020-10-18 14:23 | PCM.SN.2 ---
- Free Text/Narrative Note: 11:50 - 12:25 Preoperative Epidural catheter placement attempt note. Patient has been interviewed, risk/benefits/alternatives discussed, questions answered. Vital signs reviewed. Consent signed. IVF bolus given. Patient is in preoperative area, sitting on the stretcher, feet supported on the stool, positioning using pillow and table to lean on. Time out performed at 11:50. IV 2 mg Midazolam, see anesthesia record. Mask, head cover, sterile gloves on. Betadine preparation x3. Local infiltration with 1% Lidocaine at T10-T11 interspace. Difficulty advancing the needle, redirection x2. No definitive STERLING after several attempts. Local infiltration with 1% Lidocaine at T11-T12 interspace, several attempts of needle advancing. Unable to reach the space. Attempt aborted at this interspace, needle withdrawn. Additional 2 attempts at T12-L1 interspace. Local infiltration with 1% Lidocaine, several attempts of needle advancing. Unable to reach the space. Attempt aborted at this interspace, needle withdrawn. Future attempts have been aborted and the patient has been positioned supine. Patient has been notified about possible development of backaches. Verbalizes understanding. Procedure aborted 12:25
--- NOTE | 2020-10-18 15:16 | PCM48HPAN ---
Post Anesthesia Note - EVALUATION WITHIN 48HRS OF ANESTHETIC Vital Signs in Normal Range: Yes Patient Participated in Evaluation: Yes Respiratory Function Stable: Yes Airway Patent: Yes Cardiovascular Function Stable: Yes Hydration Status Stable: Yes Pain Control Satisfactory: Yes Nausea and Vomiting Control Satisfactory: Yes Mental Status Recovered: Yes Vital Signs: Last Vital Signs Temp 97.7 F 10/18/20 14:45 Pulse 70 10/18/20 15:00 Resp 16 10/18/20 15:00 BP 133/78 10/18/20 15:00 Pulse Ox 95 10/18/20 15:00 - COMMENTS/OBSERVATIONS Free Text/Narrative:: Patient is in stage 2 recovery, comfortable, may go to extended floor recovery prior to discharge home today.
--- NOTE | 2020-10-20 10:26 | PCM.PRNOTE ---
- Free Text/Narrative Note: Date: 10/18/2020 Operation: open primary repair of incarcerated umbilical hernia Surgeon: Mitchell Mart MD Findings: strangulated omental fat within small hernia. Defect measured less than 1 cm. The viscera appeared healthy. A small nodular fatty lesion within the hernia sac was sent for pathologic analysis. Sac was excised and fascia closed primarily. Detailed Report: The patient was taken to the operating room and placed in supine position. Time out was performed, and general endotracheal anesthesia was initiated. Abdominal hair was clipped, and a Lilly catheter was placed to drain the bladder. The abdomen was prepped and draped in usual sterile fashion. A small midline periumbilical incision was planned. 10 cc of local anesthetic was injected intradermally at the site. The scalpel was used to incise through to the subcutaneous fat around the small palpable hernia site. Careful dissection ensued, and the peritoneal cavity was entered at the midline inferior to the site of the hernia. Underlying omental fat swept away from the hernia site easily with digital manipulation. There did not appear to be any small bowel associated with the hernia. The incision was extended, and the fascial defect at the umbilicus was very small, measuring only a few millimeters. An incision was made through the hernia sac to the base of the defect. A small nodular fatty lesion was encased within the hernia sac, this was excised and sent for pathologic analysis. The viscera was again inspected, and appeared healthy. The hernia sac was excised, and the fascial incision was closed with running 0 PDS suture, this incision spanned about 5 cm in length. An additional 10 cc of local anesthetic was injected at the fascia. Skin was closed at the level of the dermis with interrupted 3-0 Vicryl suture. The wound was dressed with Dermabond. The patient tolerated the procedure well.
--- NOTE | 2020-10-20 10:28 | PCM.HP.2 ---
H&P History of Present Illness - General Date of Service: 10/18/20 Admit Problem/Dx: incarcerated umbilical hernia Source of Information: Patient - History of Present Illness Initial Comments - Free Text/Narative: Presented to clinic with painful, irreducible small umbilical hernia with overlying skin change and recent abdominal ultrasound showing small bowel- containing hernia. Abdominal Pain Score (Numeric/FACES): 0 - Related Data Allergies/Adverse Reactions: Allergies Allergy/AdvReac Type Severity Reaction Status Date / Time amoxicillin [Amoxicillin] Allergy Rash Verified 10/18/20 11:27 Home Medications: Home Meds Quinapril HCl 40 mg PO DAILY 03/12/18 [History] amLODIPine Besylate [Amlodipine Besylate] 10 mg PO DAILY 03/12/18 [History] atorvaSTATin [Lipitor] 20 mg PO DAILY 03/12/18 [History] Aspirin [Adult Low Dose Aspirin EC] 81 mg PO DAILY 10/18/20 [History] Cholecalciferol (Vitamin D3) [Vitamin D3] 1,000 unit PO DAILY 10/18/20 [History] Omeprazole 20 mg PO DAILY 10/18/20 [History] oxyCODONE 5 mg PO Q4H PRN #20 tab 10/18/20 [Rx] Past Medical History HEENT History: Reports: Impaired Vision Cardiovascular History: Reports: Hypertension, Other (See Below) Other Cardiovascular History: partial blockage Respiratory History: Reports: Sleep Apnea Gastrointestinal History: Reports: GERD, Hiatal Hernia - Past Surgical History Male Surgical History: Reports: Prostatectomy Neurological Surgical History: Reports: Lumbar Spine Musculoskeletal Surgical History: Reports: Shoulder Surgery Social & Family History - Family History Cardiac: Reports: Hypertension Neurological: Reports: Other (See Below) Other Neurological Family History: ALS - Tobacco Use Tobacco Use Status *Q: Never Tobacco User - Caffeine Use Caffeine Use: Reports: None - Recreational Drug Use Recreational Drug Use: No Drug Use in Last 12 Months: No - Living Situation & Occupation Living situation: Reports: Occupation: Employed H&P Review of Systems - Review of Systems: Review Of Systems: See Below General: Reports: No Symptoms HEENT: Reports: No Symptoms Pulmonary: Reports: No Symptoms Cardiovascular: Reports: No Symptoms Gastrointestinal: Reports: Abdominal Pain Genitourinary: Reports: No Symptoms Musculoskeletal: Reports: No Symptoms Skin: Reports: No Symptoms Neurological: Reports: No Symptoms Hematologic/Lymphatic: Reports: No Symptoms Immunologic: Reports: No Symptoms Exam - Exam Exam: See Below - Vital Signs Vital Signs: Last Vital Signs Temp 98.1 C H 10/18/20 17:00 Pulse 77 10/18/20 17:15 Resp 16 10/18/20 17:15 BP 138/72 10/18/20 17:15 Pulse Ox 93 L 10/18/20 17:15 Weight: 84.368 kg - Exam General: Alert, Oriented, Cooperative HEENT: Conjunctiva Clear Neck: Supple Lungs: Clear to Auscultation Cardiovascular: Regular Rate, Regular Rhythm GI/Abdominal Exam: Hernia Back Exam: Normal Inspection Extremities: Normal Inspection Skin: Warm, Dry Neuro Extensive - Mental Status: Alert, Oriented x3, Normal Mood/Affect Sepsis Event Note - Evaluation Sepsis Screening Result: No Definite Risk Problem List Initiated/Reviewed/Updated: Yes Assessment/Plan Comment:: Concern for strangulated umbilical hernia, though exam has been stable for days and there are no signs of generalized peritonitis. Plan for urgent primary repair. - Mortality Measure Prognosis:: Good
== END | disposition home or self-care (01) ==
LOC: UNDOADMIN 10:45 → JD.ICU 10:45 → EDSTATUS 11:45 → JD.SDS 12:36
PROVIDERS: ATTEND Surgery
DX: K42.0 Umbilical hernia with obstruction, without gangrene (principal); M54.9 Dorsalgia, unspecified; M79.89 Other specified soft tissue disorders; Z01.812 Encounter for preprocedural laboratory examination; Z20.828 Contact with and (suspected) exposure to other viral communicable diseases; Z88.0 Allergy status to penicillin; Z79.82 Long term (current) use of aspirin; Z79.899 Other long term (current) drug therapy; I10 Essential (primary) hypertension; G47.33 Obstructive sleep apnea (adult) (pediatric); Z99.89 Dependence on other enabling machines and devices; Z53.9 Procedure and treatment not carried out, unspecified reason
CPT/HCPCS: 49587; 62320; 87641; A9270; J0330; J1885; J2250; J2405; J2704; J2710; J3010; J3490; J7120; U0002; 00750

== ENCOUNTER 2021-07-27 10:32 | Emergency (ER) | payer MEDICARE, BC ==
--- NOTE | 2021-07-27 11:36 | EDM.PDOC ---
ED HPI GENERAL MEDICAL PROBLEM - General Chief Complaint: Abdominal Pain Stated Complaint: ABDOMINAL PAIN Time Seen by Provider: 07/27/21 11:35 - History of Present Illness INITIAL COMMENTS - FREE TEXT/NARRATIVE: 71-year-old male presents entz to the emergency room with abdominal pain. Patient has had lower abdominal discomfort and frequent loose stools over the last couple of days. This reminds of of a flare of diverticulitis he had about 12 years ago. Patient has dark almost black watery at times stools. He denies any heartburn reflux or upper abdominal discomfort. The patient has been using some Pepto-Bismol and some other [id number] meds to help this improve. However is not seeing any improvement with it. Patient has not had any fevers or chills that he is aware of. Abdominal Pain Score (Numeric/FACES): 8 - Related Data Allergies Allergy/AdvReac Type Severity Reaction Status Date / Time amoxicillin [Amoxicillin] Allergy Rash Verified 07/27/21 10:40 Home Meds: Home Meds Quinapril HCl 40 mg PO DAILY 03/12/18 [History] atorvaSTATin [Lipitor] 20 mg PO DAILY 03/12/18 [History] Aspirin [Adult Low Dose Aspirin EC] 81 mg PO DAILY 10/18/20 [History] Cholecalciferol (Vitamin D3) [Vitamin D3] 1,000 unit PO DAILY 10/18/20 [History] Omeprazole 20 mg PO DAILY 10/18/20 [History] Ciprofloxacin HCl [Cipro] 500 mg PO BID #20 tablet 07/27/21 [Rx] amLODIPine Besylate [Amlodipine Besylate] 10 mg PO DAILY 07/27/21 [History] metroNIDAZOLE [Flagyl] 500 mg PO Q8H #30 tab 07/27/21 [Rx] Past Medical History HEENT History: Reports: Impaired Vision Cardiovascular History: Reports: High Cholesterol, Hypertension, Other (See Below) Other Cardiovascular History: partial blockage Respiratory History: Reports: Sleep Apnea Gastrointestinal History: Reports: GERD, Hiatal Hernia - Past Surgical History Male Surgical History: Reports: Prostatectomy Neurological Surgical History: Reports: Lumbar Spine Musculoskeletal Surgical History: Reports: Shoulder Surgery Social & Family History - Family History Cardiac: Reports: Hypertension Neurological: Reports: Other (See Below) Other Neurological Family History: ALS - Tobacco Use Tobacco Use Status *Q: Never Tobacco User Second Hand Smoke Exposure: No - Caffeine Use Caffeine Use: Reports: Soda - Recreational Drug Use Recreational Drug Use: No - Living Situation & Occupation Living situation: Reports: Occupation: Employed ED ROS GENERAL - Review of Systems Review Of Systems: See Below Constitutional: Reports: No Symptoms HEENT: Reports: No Symptoms Respiratory: Reports: No Symptoms Cardiovascular: Reports: No Symptoms Endocrine: Reports: No Symptoms GI/Abdominal: Reports: Abdominal Pain, Diarrhea, Nausea, Vomiting. Denies: Constipation : Reports: No Symptoms Musculoskeletal: Reports: No Symptoms Skin: Reports: No Symptoms Neurological: Reports: No Symptoms ED EXAM, GENERAL - Physical Exam Exam: See Below Exam Limited By: No Limitations General Appearance: Alert, No Apparent Distress Head: Atraumatic, Normocephalic Neck: Normal Inspection, Supple, Non-Tender, Full Range of Motion Respiratory/Chest: No Respiratory Distress, Lungs Clear, Normal Breath Sounds Cardiovascular: Regular Rate, Rhythm, No Edema, No Murmur GI/Abdominal: Normal Bowel Sounds, Soft, Other (No upper abdominal tenderness with palpation. He is got some left lower abdominal discomfort and suprapubic discomfort. No rigidity rebound or guarding noted.) Rectal (Males) Exam: Normal Rectal Tone, Black Stool, Heme + Stool (Stool is weakly Hemoccult positive large amount of stool obtained that is black and watery and only a few specks are heme positive) Back Exam: Normal Inspection. No: CVA Tenderness (L), CVA Tenderness (R) Extremities: Normal Inspection, No Pedal Edema Neurological: Alert, Oriented, Normal Cognition Course - Vital Signs Last Recorded V/S: Last Vital Signs Temp 36.1 C 07/27/21 10:39 Pulse 64 07/27/21 10:39 Resp 20 07/27/21 10:39 BP 149/79 H 07/27/21 10:39 Pulse Ox 97 07/27/21 10:39 - Orders/Labs/Meds Orders: Active Orders 24 hr Category Date Time Status Abdomen Pelvis w Cont [CT] Stat Exams 07/27/21 12:28 Taken FECAL LACTOFERRIN [MREF] Stat Lab 07/27/21 10:50 Received STOOL CULTURE/SHIGA TOXIN [MREF] Stat Lab 07/27/21 10:50 Received Lactated Ringers [Ringers, Lactated] 1,000 ml Med 07/27/21 12:00 Active IV ASDIRECTED Sodium Chloride 0.9% [Saline Flush] Med 07/27/21 13:03 Active 10 ml FLUSH ONETIME PRN Medication Orders Lactated Ringer's (Ringers, Lactated) 1,000 mls @ 150 mls/hr IV ASDIRECTED IRVIN Last Admin: 07/27/21 12:13 Dose: 150 mls/hr Documented by: LUIS A Sodium Chloride (Sodium Chloride 0.9% 10 Ml Syringe) 10 ml FLUSH ONETIME PRN PRN Reason: IV FLUSH Last Admin: 07/27/21 13:29 Dose: 10 ml Documented by: KELSIE Labs: Laboratory Tests 07/27/21 07/27/21 07/27/21 Range/Units 10:50 10:50 10:50 WBC 9.05 (4.23-9.07) K/mm3 RBC 5.05 (4.63-6.08) M/mm3 Hgb 15.6 (13.7-17.5) gm/dl Hct 46.3 (40.1-51.0) % MCV 91.7 D (79.0-92.2) fl MCH 30.9 (25.7-32.2) pg MCHC 33.7 (32.2-35.5) g/dl RDW Std Deviation 41.9 (35.1-43.9) fL Plt Count 194 (163-337) K/mm3 MPV 9.8 (9.4-12.3) fl Neut % (Auto) 75.7 H (34.0-67.9) % Lymph % (Auto) 13.4 L (21.8-53.1) % [place] % (Auto) 9.6 (5.3-12.2) % Eos % (Auto) 1.0 (0.8-7.0) Baso % (Auto) 0.2 (0.1-1.2) % Neut # (Auto) 6.85 H (1.78-5.38) K/mm3 Lymph # (Auto) 1.21 L (1.32-3.57) K/mm3 [place] # (Auto) 0.87 H (0.30-0.82) K/mm3 Eos # (Auto) 0.09 (0.04-0.54) K/mm3 Baso # (Auto) 0.02 (0.01-0.08) K/mm3 Sodium 139 (136-145) mEq/L Potassium 3.6 (3.5-5.1) mEq/L Chloride 102 (98-107) mEq/L Carbon Dioxide 30 (21-32) mEq/L Anion Gap 10.6 (5-15) BUN 13 (7-18) mg/dL Creatinine 1.1 (0.7-1.3) mg/dL Est Cr Clr Drug Dosing 61.32 mL/min Estimated GFR (MDRD) > 60 (>60) mL/min BUN/Creatinine Ratio 11.8 L (14-18) Glucose 95 (70-99) mg/dL Calcium 9.1 (8.5-10.1) mg/dL Total Bilirubin 1.6 H (0.2-1.0) mg/dL AST 16 (15-37) U/L ALT 30 (16-63) U/L Alkaline Phosphatase 91 (46-116) U/L Total Protein 7.7 (6.4-8.2) g/dl Albumin 3.8 (3.4-5.0) g/dl Globulin 3.9 gm/dL Albumin/Globulin Ratio 1.0 (1-2) Lipase (73-393) U/L Urine Color Yellow (Yellow) Urine Appearance Clear (Clear) Urine pH 5.5 (5.0-8.0) Ur Specific [place] 1.025 (1.005-1.030) Urine Protein Trace H (Negative) Urine Glucose (UA) Negative (Negative) Urine Ketones Negative (Negative) Urine Occult Blood Trace-lysed H (Negative) Urine Nitrite Negative (Negative) Urine Bilirubin Negative (Negative) Urine Urobilinogen 0.2 (0.2-1.0) Ur Leukocyte Esterase Negative (Negative) Urine RBC 5-10 H (0-5) /hpf Urine WBC 0-5 (0-5) /hpf Ur Squamous Epith Cells 0-5 (0-5) /hpf Urine Bacteria Few (FEW) /hpf Urine Mucus Many H (FEW) /hpf C.difficile [id number] C. difficile Tox (PCR) 07/27/21 07/27/21 Range/Units 10:50 10:50 WBC (4.23-9.07) K/mm3 RBC (4.63-6.08) M/mm3 Hgb (13.7-17.5) gm/dl Hct (40.1-51.0) % MCV (79.0-92.2) fl MCH (25.7-32.2) pg MCHC (32.2-35.5) g/dl RDW Std Deviation (35.1-43.9) fL Plt Count (163-337) K/mm3 MPV (9.4-12.3) fl Neut % (Auto) (34.0-67.9) % Lymph % (Auto) (21.8-53.1) % [place] % (Auto) (5.3-12.2) % Eos % (Auto) (0.8-7.0) Baso % (Auto) (0.1-1.2) % Neut # (Auto) (1.78-5.38) K/mm3 Lymph # (Auto) (1.32-3.57) K/mm3 [place] # (Auto) (0.30-0.82) K/mm3 Eos # (Auto) (0.04-0.54) K/mm3 Baso # (Auto) (0.01-0.08) K/mm3 Sodium (136-145) mEq/L Potassium (3.5-5.1) mEq/L Chloride (98-107) mEq/L Carbon Dioxide (21-32) mEq/L Anion Gap (5-15) BUN (7-18) mg/dL Creatinine (0.7-1.3) mg/dL Est Cr Clr Drug Dosing mL/min Estimated GFR (MDRD) (>60) mL/min BUN/Creatinine Ratio (14-18) Glucose (70-99) mg/dL Calcium (8.5-10.1) mg/dL Total Bilirubin (0.2-1.0) mg/dL AST (15-37) U/L ALT (16-63) U/L Alkaline Phosphatase (46-116) U/L Total Protein (6.4-8.2) g/dl Albumin (3.4-5.0) g/dl Globulin gm/dL Albumin/Globulin Ratio (1-2) Lipase 101 (73-393) U/L Urine Color (Yellow) Urine Appearance (Clear) Urine pH (5.0-8.0) Ur Specific [place] (1.005-1.030) Urine Protein (Negative) Urine Glucose (UA) (Negative) Urine Ketones (Negative) Urine Occult Blood (Negative) Urine Nitrite (Negative) Urine Bilirubin (Negative) Urine Urobilinogen (0.2-1.0) Ur Leukocyte Esterase (Negative) Urine RBC (0-5) /hpf Urine WBC (0-5) /hpf Ur Squamous Epith Cells (0-5) /hpf Urine Bacteria (FEW) /hpf Urine Mucus (FEW) /hpf C.difficile [id number] Presumptive negative C. difficile Tox (PCR) Negative Meds: Medications Generic Name Dose Route Start Last Admin Trade Name Freq PRN Reason Stop Dose Admin Lactated Ringer's 1,000 mls @ 150 mls/hr 07/27/21 12:00 07/27/21 12:13 Ringers, Lactated IV 150 mls/hr ASDIRECTED IRVIN Administration Sodium Chloride 10 ml 07/27/21 13:03 07/27/21 13:29 Sodium Chloride 0.9% 10 Ml Syringe FLUSH 10 ml ONETIME PRN Administration IV FLUSH Discontinued Medications Generic Name Dose Route Start Last Admin Trade Name Freq PRN Reason Stop Dose Admin Al Hydroxide/Mg Hydroxide 30 0 ml 07/27/21 11:55 07/27/21 12:08 ml/ Lidocaine HCl 15 ml PO 07/27/21 11:56 45 ml ONETIME ONE Administration Diatrizoate Meglum/Diatrizoate Sod 120 ml 07/27/21 13:03 07/27/21 13:29 Diatrizoate Meglumine/Diatrizoate Sodium 37% 120 Ml Bottle PO 07/27/21 13:04 60 ml ONETIME ONE Administration Hydromorphone HCl 0.5 mg 07/27/21 12:26 07/27/21 12:32 Hydromorphone 0.5 Mg/0.5 Ml Syringe IVPUSH 07/27/21 12:27 0.5 mg ONETIME ONE Administration Iopamidol 100 ml 07/27/21 13:03 07/27/21 13:29 Iopamidol 612 Mg/Ml 100 Ml Bottle IVPUSH 07/27/21 13:04 100 ml ONETIME ONE Administration Ondansetron HCl 4 mg 07/27/21 12:27 07/27/21 12:32 Ondansetron 4 Mg/2 Ml Sdv IVPUSH 07/27/21 12:28 4 mg ONETIME ONE Administration - Re-Assessments/Exams Free Text/Narrative Re-Assessment/Exam: 07/27/21 12:31 IV fluids ordered labs ordered abdominal pelvic CT ordered I discussed with nursing they will not send to imaging until we have reviewed the labs. I did attempt a GI cocktail the did no good. And then found out afterwards the patient was taken Pepto-Bismol. 07/27/21 14:51 CT indeed did show diverticulitis the patient also has a possible nodular thickening along the posterior bladder wall. I did discuss this with Dr. Collier, the patient's urologist who believes this is probably an extension of his prostate. However we will have the patient come in and have a cystoscopy to make sure nothing bad is going on. Patient's white count is okay this is an uncomplicated case of diverticulitis no abscess or abnormal fluid noted patient will be treated as an outpatient on oral antibiotics. He will be started on Cipro and Flagyl these have been sent electronically to the [facility] in the [place]. The patient does not believe he needs any pain medication at this time Departure - Departure Time of Disposition: 14:53 Disposition: Home, Self-Care 01 Clinical Impression: Diverticulitis - Discharge Information Prescriptions: Ciprofloxacin HCl [Cipro] 500 mg PO BID #20 tablet metroNIDAZOLE [Flagyl] 500 mg PO Q8H #30 tab Referrals: Nuno Cortes MD [Primary Care Provider] - Forms: ED Department Discharge Additional Instructions: Return to the emergency room with any questions problems or worsening symptoms. I sent your antibiotics, 2 of them 1 is ciprofloxacin and the other is Flagyl to the [facility] in the [email or web address] store you be taking these for 10 days. Start as soon as you get these filled after leaving the emergency room. Call DrSarah Call your urologist office as you have urologist would like to see you in the office. Tell the staff that I did talk to the urologist who wants to see you. Follow-up with your regular doctor the midportion of next week for recheck. Sepsis Event Note (ED) - Focused Exam Vital Signs: Vital Signs Temp Pulse Resp BP Pulse Ox 07/27/21 10:39 36.1 C 64 20 149/79 H 97 - My Orders Last 24 Hours: My Active Orders 07/27/21 10:50 FECAL LACTOFERRIN [MREF] Stat STOOL CULTURE/SHIGA TOXIN [MREF] Stat 07/27/21 12:00 Lactated Ringers [Ringers, Lactated] 1,000 ml IV ASDIRECTED 07/27/21 12:28 Abdomen Pelvis w Cont [CT] Stat 07/27/21 13:03 Sodium Chloride 0.9% [Saline Flush] 10 ml FLUSH ONETIME PRN - Assessment/Plan Last 24 Hours: My Active Orders 07/27/21 10:50 FECAL LACTOFERRIN [MREF] Stat STOOL CULTURE/SHIGA TOXIN [MREF] Stat 07/27/21 12:00 Lactated Ringers [Ringers, Lactated] 1,000 ml IV ASDIRECTED 07/27/21 12:28 Abdomen Pelvis w Cont [CT] Stat 07/27/21 13:03 Sodium Chloride 0.9% [Saline Flush] 10 ml FLUSH ONETIME PRN
[2021-07-27] MEDS ORDERED: Alum Hydrox/Mag Hydrox/Simeth 30 ML, Lidocaine 2% 15 ML PO ONE ×2 (11:55)
[2021-07-27] MEDS ORDERED: Lactated Ringers 1,000 ML IV SCH (12:00)
[2021-07-27] MEDS ORDERED: HYDROmorphone 0.5 MG/0.5 ML Syringe IVPUSH ONE (12:26)
[2021-07-27] MEDS ORDERED: Ondansetron 4 MG/2 ML SDV IVPUSH ONE (12:27)
[2021-07-27] MEDS ORDERED: Iopamidol 612 MG/ML 100 ML Bottle IVPUSH ONE (13:03)
[2021-07-27] MEDS ORDERED: Diatrizoate Meglumine/Diatrizoate Sodium 37% 120 ML Bottle PO ONE (13:03)
[2021-07-27] MEDS ORDERED: Sodium Chloride 0.9% 10 ML Syringe FLUSH PRN (13:03)
--- NOTE | 2021-07-27 16:08 | CT ---
CT abdomen and pelvis Technique: Multiple axial sections were obtained from above the dome of the diaphragm inferiorly through the pubic symphysis. Intravenous and oral contrast were utilized. Delayed images were obtained to the bladder. Comparison: Prior CT abdomen and pelvis exam of 03/12/18. Findings: Visualized lung bases show nothing acute. Liver contains no focal parenchymal abnormality. Spleen size is normal. Gallbladder contains no calcified gallstones. Adrenal glands show no nodule. Pancreas shows no discrete abnormality. Kidneys show symmetric contrast enhancement. No hydronephrosis is seen. No ureteral dilatation is seen. No ureteral calculi are seen. Abdominal aorta shows slight atherosclerotic calcification with no aneurysm. Atherosclerotic calcification continues into the iliac vessels. Appendix is seen and appears normal. Numerous diverticuli are seen within the sigmoid colon which show evidence of wall thickening as well as surrounding inflammatory change compatible with diverticulitis. Bladder shows a soft tissue nodule posteriorly which measures 1.5 cm. No pelvic adenopathy is seen. No retroperitoneal adenopathy is seen. Delayed images shows contrast within both distal ureters as well as within the bladder. Bone window settings were reviewed which show scattered degenerative change within the spine most prominent at L4-5 with disc space narrowing, endplate spur process and vacuum phenomena. Impression: 1. Diverticuli with wall thickening and inflammatory change compatible with diverticulitis within the sigmoid colon. 2. Small abnormality within the bladder and difficult to exclude transitional cell carcinoma. Urology referral for biopsy is recommended. 3. Other chronic findings as noted above. Diagnostic code #9 I agree with preliminary report from [facility], finalized on 07/27/21, 3:28 PM Central Daylight Time, code 1
== END 2021-07-27 15:08 | disposition home or self-care (01) ==
LOC: JD.ED 10:32
DX: K57.32 Diverticulitis of large intestine without perforation or abscess without bleeding (principal); E78.00 Pure hypercholesterolemia, unspecified; I10 Essential (primary) hypertension; K21.9 Gastro-esophageal reflux disease without esophagitis; Z88.0 Allergy status to penicillin; Z79.82 Long term (current) use of aspirin; Z79.899 Other long term (current) drug therapy
CPT/HCPCS: 36415; 74177; 80053; 81001; 83630; 83690; 85025; 87045; 87046; 87493; 87899; 96374; 96375; 99284; A9270; J1170; J2405; J7120; Q9963; Q9967

== ENCOUNTER 2025-05-05 13:55 | Day surgery (SDC) | payer MEDICARE, BC ==
[2025-05-05] MEDS: Polymyxin B/Trimethoprim 10 ML Bottle EYERT SCH (14:47)
[2025-05-05] MEDS: Brimonidine 0.2% Ophth Soln 5 ML Bottle EYERT SCH (14:52)
[2025-05-05] MEDS: Phenylephrine 2.5% Ophth Soln 2 ML Bot EYERT SCH (15:02)
[2025-05-05] MEDS: Tropicamide 1% Ophth Soln 3 ML Bottle EYERT SCH (15:06)
[2025-05-05] MEDS: Tetracaine HCl/PF 0.5% 4 ML Bottle EYEBOTH SCH (16:01)
[2025-05-05] MEDS: Lidocaine 1% PF 2 ML SDV INJECT SCH (16:24)
[2025-05-05] MEDS: Cefuroxime 10 MG/ML SYRINGE EYERT SCH (16:33)
[2025-05-05] MEDS: Pilocarpine 4% Ophth Soln 15 ML Bot EYERT SCH (16:34)
== END 2025-05-05 16:45 | disposition home or self-care (01) ==
LOC: JD.SDS 13:55
PROVIDERS: ATTEND Ophthalmology
DX: H25.811 Combined forms of age-related cataract, right eye (principal); I10 Essential (primary) hypertension; E78.2 Mixed hyperlipidemia; Z79.899 Other long term (current) drug therapy; Z88.0 Allergy status to penicillin
CPT/HCPCS: 66984; A9270; J3490

== ENCOUNTER 2025-09-29 07:27 | Day surgery (SDC) | payer MEDICARE, BC ==
[~2025-09-29 07:27] MED LIST changes: -Bupivacaine 0.5% 30 ML SDV ONE; -Clindamycin Phosphate in D5W 900 MG in Premix Bag 1 BAG IV SCH; -HYDROmorphone 0.5 MG/0.5 ML Syringe IVPUSH PRN; -Ketorolac 30 MG/ML SDV IVPUSH ONE; -Lactated Ringers 1,000 ML IV SCH; -Lactated Ringers 1,000 ML ONE; -Lidocaine 1%/Sod Bicarbonate in NS 8.4% 1 ML Syringe IDERM PRN; -Lidocaine 2% with EPINEPHrine 1:200,000 20 ML SDV ONE; -Midazolam 1 MG/ML 2 ML SDV ONE; -Ondansetron 4 MG/2 ML SDV ONE; -Propofol 200 MG/20 ML SDV ONE; -Rocuronium 50 MG/5 ML Vial ONE; +Sodium Chloride 0.9% 10 ML Syringe FLUSH SCH; -Succinylcholine/Sod PF 100 MG/5 ML SYRINGE IV ONE; -ePHEDrine 50 MG/ML SDV ONE; -fentaNYL 100 MCG/2 ML SDV IVPUSH PRN; -fentaNYL 100 MCG/2 ML SDV ONE; -fentaNYL 250 MCG/5 ML SDV ONE; -oxyCODONE 5 MG Tab PO PRN
[2025-09-29] MEDS: Lactated Ringers 1,000 ML IV SCH (07:50)
[2025-09-29] MEDS ORDERED: propofoL 500 MG/50 ML 50 ML ONE (08:10)
== END 2025-09-29 10:15 | disposition home or self-care (01) ==
LOC: JD.SDS 07:27
PROVIDERS: ATTEND Surgery
DX: Z12.11 Encounter for screening for malignant neoplasm of colon (principal); K29.80 Duodenitis without bleeding; K31.A0 Gastric intestinal metaplasia, unspecified; K31.89 Other diseases of stomach and duodenum; K21.00 Gastro-esophageal reflux disease with esophagitis, without bleeding; K51.40 Inflammatory polyps of colon without complications; K62.1 Rectal polyp; K63.89 Other specified diseases of intestine; K44.9 Diaphragmatic hernia without obstruction or gangrene; K57.30 Diverticulosis of large intestine without perforation or abscess without bleeding; K22.2 Esophageal obstruction; J38.1 Polyp of vocal cord and larynx; E78.00 Pure hypercholesterolemia, unspecified; I10 Essential (primary) hypertension; Z88.1 Allergy status to other antibiotic agents; Z88.0 Allergy status to penicillin; Z79.82 Long term (current) use of aspirin; Z79.899 Other long term (current) drug therapy; Z86.0100 Personal history of colon polyps, unspecified
CPT/HCPCS: 43239; 45380; C9777; J2003; J2704; J7120; 00813; 99100